=== PATIENT | female | born 1960 ===

== ENCOUNTER 2021-07-11 05:55 | Day surgery (SDC) | payer OTHER ==
[~2021-07-11 05:55] MED LIST: SYNTHROID125 MCG
[2021-07-11] MEDS ORDERED: IBU600 MG PO (08:07)
== END 2021-07-11 14:10 | disposition home or self-care (01) ==
LOC: CIR.AMB 05:55
PROVIDERS: ATTEND Obstetrics & Gynecology Gynecology
DX: N84.0 Polyp of corpus uteri (principal); Z20.822 Contact with and (suspected) exposure to COVID-19